=== PATIENT | female | born 1990 | race Caucasian/White ===

== ENCOUNTER 2020-05-04 16:24 | Inpatient (IN) | payer OTHER ==
[~2020-05-04] VITALS: Ht 154.9 cm; Wt 72.6 kg
[2020-05-04 16:25] VITALS: BP 145/95
[2020-05-04 16:56] LABS: URINE BILIRUBIN NEGATIVE (Negative); URINE BLOOD 2+ (Negative); URINE CLARITY CLEAR; URINE COLOR YELLOW; URINE GLUCOSE-RANDOM* NEGATIVE (Negative); URINE KETONES NEGATIVE (Negative); URINE PROTEIN (DIPSTICK) NEGATIVE (Negative); URINE SPECIFIC GRAVITY 1.025 (1.005-1.035); URINE UROBILINOGEN 0.2 E.U./dl (0.2-1.0)
[2020-05-04 16:57] LABS: URINE LEUKOCYTES-REFLEX 1+ (Negative); URINE NITRITE-REFLEX POSITIVE (Negative)
[2020-05-04 17:09] LABS: ABSOLUTE NEUTROPHILS 6.1 thou/uL (1.4-8.2); BASOPHILS 0.6 % (0.0-2.0); EOSINOPHILS 4.4 % (0.0-3.0); HEMATOCRIT 41.4 % (37.0-47.0); HEMOGLOBIN 14.2 gm/dL (12.0-15.0); LYMPHOCYTES 20.2 % (24.0-44.0); MCHC 34.2 g/dL (28.0-37.0); MCV 90.5 fL (80.0-100.0); MONOCYTES 6.4 % (1.0-8.0); POLYS 68.4 % (36.0-66.0); RBC 4.58 mil/uL (4.20-5.00); RDW 13.4 % (10.5-14.5); WBC 8.9 thou/uL (4.0-11.0)
[2020-05-04 17:22] LABS: CREATININE 0.8 mg/dL (0.6-1.0)
[2020-05-04 17:26] LABS: CASTS None Seen /LPF (None Seen); CRYSTALS None Seen /LPF (None Seen); SQUAMOUS 0-3 Few /LPF (0-3)
[2020-05-04 17:27] LABS: URINE RBC 3-10 Few /HPF (0-2)
[2020-05-04 17:28] LABS: URINE WBC-REFLEX 0-5 Rare /HPF (0-5)
[2020-05-04 17:28] LABS: ALBUMIN 3.9 g/dL (3.4-5.0); TOTAL BILIRUBIN 0.2 mg/dL (0.2-1.0); TOTAL PROTEIN 7.3 g/dL (6.4-8.2)
[2020-05-04 17:43] LABS: PLATELET COUNT 176 thou/uL (150-400)
[2020-05-04 19:59] VITALS: BP 116/81
--- NOTE | 2020-05-04 20:03 | NUR ---
FIRST ATTEMPT TO CALL REPORT. NO ANSWER
[2020-05-04 21:29] VITALS: BP 126/68
[2020-05-04 23:43] VITALS: BP 108/64
--- NOTE | 2020-05-05 01:52 | NUR ---
PT TO ROOM 433 AROUND 2114. PT IS A&OX4. ASKED TO NOT BE BOTHERED UPON ARRIVAL. OREINTED TO UNIT, STAFF AND USE OF CALL LIGHT. ADMISSION COMPLETED. VSS. PT HAD REPORTED PAIN 5/10, NEARLY 5 MINS AFTER MORPHINE WAS GIVEN, PT WAS TRASHING AROUND CRYING IN EXTREME PAIN. GIVEN A WARM BLANKET FOR HER ABDOMEN AND COOL RAGS FOR HER FOREHEAD. PT SEEMED TO RELAX SOME AND WANTED TO NOT BE BOTHERED. COVID SWAB SENT FOR POSSIBLE SX. UP AD INOCENCIA IN ROOM. MAINTAINING NPO STATUS. CURRENTLY RESTING IN BED, WILL CONTINUE TO MONITOR.
[2020-05-05 04:58] VITALS: BP 103/55
[2020-05-05 07:10] VITALS: BP 110/60
--- NOTE | 2020-05-05 08:56 | NUR ---
ASSESSMENT: CM REVIEWED CHART AND SPOKE WITH PATIENT. PT IS ALERT AND ORIENTED X4. PT REPORTS THAT SHE LIVES AT HOME WITH A FRIEND. PT REPORTS BEING FULLY INDEPENDENT WITH ADLS AND AMBULATION. PT REPORTS THAT SHE HAS NOT HAD HH IN THE PAST. PT STATES SHE DOES NOT HAVE INSURANCE OR A PCP. CM PROVIDED PATIENT WITH A HEALTH RESOURCE GUIDE WITH THAT INFORMATION INCLUDED. PT REPORTS THAT SHE WILL HAVE TRANSPORTATION HOME AT THE TIME OF DISCHARGE. PT DOES NOT ANTICIPATE HAVING ANY NEEDS FROM CM PRIOR TO DISCHARGE. PTS COVID TEST IS PENDING AND SHE IS TO LIKELY HAVE SURGERY TODAY DUE TO ACUTE CHOLECYSTITIS. CM WILL CONTINUE TO FOLLOW.
--- NOTE | 2020-05-05 10:46 | NUR ---
Assumed care of pt at 0700. Pt a&ox4. Pain controlled with prn pain meds. IVF infusing. Awaiting covid test results. Surgery possible tomorrow if covid results come back late in the day today. IV antibiotics infusing. Call light withn reach. Will continue to monitor.
[2020-05-05] MEDS ORDERED: ACETAMINOPHEN325 M1 PO (12:46)
[2020-05-05] MEDS ORDERED: OXYCODONE HCL 55 MG PO (12:46)
[2020-05-05] MEDS ORDERED: IBUPROFEN 200200 M1 PO (12:46)
[2020-05-05] MEDS ORDERED: MIRALAX17 GM PO (12:46)
[2020-05-05 16:10] VITALS: BP 110/60
== END 2020-05-05 16:42 | disposition home or self-care (01) | DRG 418 ==
LOC: ER 16:24 → EROBS 19:44 → 4S 21:04
PROVIDERS: Student in an Organized Health Care Education/Training Program; ADMIT Surgery; ATTEND Surgery
PROC: 0FT44ZZ Resection of Gallbladder, Percutaneous Endoscopic Approach (ICD-10-PCS; principal; 2020-05-05)
DX: K81.0 Acute cholecystitis (principal); N39.0 Urinary tract infection, site not specified; F17.210 Nicotine dependence, cigarettes, uncomplicated; Z79.899 Other long term (current) drug therapy; Z03.818 Encounter for observation for suspected exposure to other biological agents ruled out
CPT/HCPCS: 10195; 50101; 50411; 50445; 50555; 50558; 52265; 52266; 53307; 53310; 53312; 54022; 54118; 55245; 56462; 56525; 56526; 62110; 62900